=== PATIENT | female | born 1995 | race Two or more races ===

== ENCOUNTER 2022-01-20 14:52 | Outpatient (CLI) | payer OTHER | END 2022-01-20 15:54 | disposition home or self-care (01) | LOC: PRENATAL 14:52 | PROVIDERS: ATTEND Obstetrics & Gynecology Maternal & Fetal Medicine | DX: O36.80X0 Pregnancy with inconclusive fetal viability, not applicable or unspecified (principal); Z36.0 Encounter for antenatal screening for chromosomal anomalies; Z3A.11 11 weeks gestation of pregnancy ==

== ENCOUNTER 2022-03-25 08:06 | Outpatient (CLI) | payer OTHER | END 2022-03-25 09:15 | disposition home or self-care (01) | LOC: PRENATAL 08:06 | PROVIDERS: ATTEND Obstetrics & Gynecology Maternal & Fetal Medicine | DX: O35.0XX0 Maternal care for (suspected) central nervous system malformation in fetus, not applicable or unspecified (principal); O35.3XX0 Maternal care for (suspected) damage to fetus from viral disease in mother, not applicable or unspecified; O34.219 Maternal care for unspecified type scar from previous cesarean delivery ==

== ENCOUNTER 2022-07-19 07:45 | Inpatient (IN) | payer OTHER ==
[~2022-07-19] VITALS: Ht 162.6 cm; Wt 2.3 kg
[2022-07-21] MEDS ORDERED: COMPLETE NATAL1 EACH PO (07:34)
[2022-07-24] MEDS ORDERED: PERCOCET 5-3251 EACH PO (12:11)
[2022-07-24] MEDS ORDERED: IBU800 MG PO (12:11)
[2022-07-24] MEDS ORDERED: COLACE100 MG PO (12:11)
[2022-07-24] MEDS ORDERED: SIMETHICONE80 MG PO (12:11)
== END 2022-07-24 12:53 | disposition home or self-care (01) | DRG 785 ==
LOC: OB/GYN 07-21 07:45 → O/R 07-21 08:08 → OB/GYN 07-21 09:30
PROVIDERS: ADMIT Obstetrics & Gynecology; ATTEND Obstetrics & Gynecology
PROC: 0UB70ZZ Excision of Bilateral Fallopian Tubes, Open Approach (ICD-10-PCS; 2022-07-21)
PROC: 4A1HXCZ Monitoring of Products of Conception, Cardiac Rate, External Approach (ICD-10-PCS; 2022-07-21)
PROC: 10D00Z1 Extraction of Products of Conception, Low, Open Approach (ICD-10-PCS; principal; 2022-07-21 09:30)
DX: O34.211 Maternal care for low transverse scar from previous cesarean delivery (principal); Z3A.38 38 weeks gestation of pregnancy; Z37.0 Single live birth; Z20.822 Contact with and (suspected) exposure to COVID-19; Z30.2 Encounter for sterilization